=== PATIENT | female | born 1995 | race Caucasian/White ===

== ENCOUNTER 2019-09-03 15:02 | Inpatient (IN) | payer MEDICAID, SELFPAY ==
[~2019-09-03] VITALS: Ht 157.5 cm; Wt 58.5 kg
[2019-09-03 15:18] VITALS: BP 96/60
--- NOTE | 2019-09-03 15:25 | NUR ---
WAIT AT LOBBY. HANDED URINE CUP.
[2019-09-03] MEDS ORDERED: NACL 0.9% 1,000 ML IV SCH (16:16)
[2019-09-03] MEDS ORDERED: fentaNYL 0.05 MG/ML VIAL IVP ONE (16:20)
[2019-09-03] MEDS ORDERED: ONDANSETRON 4 MG/2 ML VIAL IVP ONE (16:20)
[2019-09-03 17:02] LABS: BASOPHILS % (AUTO) 0.2 % (0.0-2.0); EOSINOPHILS % (AUTO) 0.4 % (0.0-4.0); HEMATOCRIT 29.7 % (36-48); HEMOGLOBIN 9.2 g/dL (12.0-16.0); LYMPHOCYTES # (AUTO) 0.5 K/uL (2.5-16.5); LYMPHOCYTES % (AUTO) 6.9 % (20.5-51.1); MEAN CORPUSCULAR HEMOGLOBIN 23 pg (27-31); MEAN CORPUSCULAR HGB CONC 31 g/dL (33-37); MEAN CORPUSCULAR VOLUME 72.8 fL (80-94); MONOCYTES # (AUTO) 0.3 K/uL (0.8-1.0); MONOCYTES % (AUTO) 4.8 % (1.7-9.3); NEUTROPHILS % (AUTO) 87.7 % (42.2-75.2); PLATELET COUNT (AUTO) 177 K/uL (140-450); RED BLOOD CELL COUNT(AUTO) 4.08 MIL/uL (4.20-5.40); RED CELL DISTRIBUTION WIDTH 18.5 % (11.6-13.7); WHITE BLOOD COUNT (AUTO) 6.8 K/uL (4.8-10.8)
[2019-09-03 17:17] LABS: PROTHROMBIN TIME 10.3 secs (10.8-13.4)
[2019-09-03 17:19] LABS: ALBUMIN 3.8 g/dL (3.4-5.0); ANION GAP 14.8 (8-16); CARBON DIOXIDE 24.7 mmol/L (21-32); CREATININE 0.6 mg/dL (0.6-1.3); POTASSIUM 3.5 mmol/L (3.5-5.1); TOTAL BILIRUBIN 1.8 mg/dL (0.0-1.0)
[2019-09-03] MEDS ORDERED: ONDANSETRON 4 MG/2 ML VIAL ONE (17:31)
[2019-09-03] MEDS ORDERED: fentaNYL 0.05 MG/ML VIAL ONE (17:32)
--- NOTE | 2019-09-03 17:35 | NUR ---
ZOFRAN AND FENTANYL IVP ADMINISTERED
--- NOTE | 2019-09-03 17:36 | NUR ---
C/O RECURRING ANTERIOR SUPRAUMBILICAL REGION PAIN WITH SEVERE NAUSEA AND UNABLE TO TOLERATE ANY PO'S X 2-3 DAYS---PT IS AWARE SOME FOODS MAKE PAIN WORSE SEEN IN OUR ER THIS PAST SUN FOR SAME COMPLAINT----SENT HOME AFTER PAIN MEDS DENIES RECENT INJURY
--- NOTE | 2019-09-03 17:36 | NUR ---
FENTANYL 50 MCG WASTED
[2019-09-03] MEDS ORDERED: HYDROcodone/APAP 7.5/325 MG 1 TAB PO PRN (17:50)
[2019-09-03] MEDS ORDERED: ONDANSETRON 4 MG/2 ML VIAL IM/IVP PRN ×2 (17:50→22:00)
[2019-09-03] MEDS ORDERED: ACETAMINOPHEN 325 MG TAB PO PRN (17:50)
[2019-09-03] MEDS ORDERED: DOCUSATE SODIUM 100 MG GELCAP PO PRN (17:50)
[2019-09-03 18:26] LABS: CHOL/HDL RATIO 2.6 (1-4.5); FREE T4 (FREE THYROXINE) 1.2 ng/dL (0.76-1.46); MAGNESIUM 1.7 mg/dL (1.8-2.4); PHOSPHORUS 2.4 mg/dL (2.5-4.9); THYROID STIMULATING HORMONE 0.59 uIU/mL (0.34-3.74)
[2019-09-03 19:20] LABS: BILIRUBIN,URINE 2+ (NEGATIVE); BLOOD, URINE NEGATIVE (NEGATIVE); COLOR,URINE YELLOW (YELLOW); LEUKOCYTE ESTERASE ,URINE 1+ (NEGATIVE); NITRITE, URINE NEGATIVE (NEGATIVE); PH,URINE 5.5 (5.0-9.0); UGLUCOSE TRACE (NEGATIVE)
[2019-09-03] MEDS ORDERED: KETOROLAC 30 MG/ML VIAL IM PRN (19:20)
[2019-09-03 19:22] LABS: APPEARANCE,URINE CLOUDY (CLEAR)
--- NOTE | 2019-09-03 19:25 | NUR ---
RECEIVED REPORT FROM ER NURSE, PATIENT ARRIVED VIA WHEELCHAIR ON ROOM AIR. O2 SAT AT 100%. ALERT AND ORIENTED X4. DENIES ANY CURRENT PAIN. PATIENT IS AMBULATORY. ORIENTATION TO ROOM AND STAFF. IV SITE TO LEFT AC 20 GAUGE INTACT AND PATENT. WILL CONTINUE TO MONITOR PATIENT.
--- NOTE | 2019-09-03 19:29 | NUR ---
Pt transferred to Med/Surg via 125-B
[2019-09-03 19:36] LABS: BARBITURATE, URINE NEGATIVE ng/ml (NEG <=200); BENZODIAZEPINE, URINE NEGATIVE ng/mL (NEG <=200); CANNABINOID, URINE NEGATIVE ng/mL (NEG <=50); COCAINE, URINE NEGATIVE ng/mL (NEG <=300); OPIATE, URINE POSITIVE ng/mL (NEG <=2000); PHENCYCLIDINE SCREEN,URINE NEGATIVE ng/mL (NEG <=25)
[2019-09-03 19:37] LABS: CALCIUM OXALATE CRYSTALS,UR 0-10 /HPF (None Seen); RBC,URINE NONE SEEN /HPF (0-5); URINE AMORPHOUS URATE 4+ /HPF (None Seen); WBC,URINE 0-5 /HPF (0-5)
[2019-09-03] MEDS ORDERED: POTASSIUM PHOSPHATE 15 MM in NACL 0.9% 250 ML IV SCH (19:40)
[2019-09-03] MEDS ORDERED: MAG SULF 2000 MG/WATER PREMIX 50 ML IV SCH (19:40)
[2019-09-03] MEDS: DEXT 5% /NACL 0.9% 1,000 ML IV SCH (19:46)
[2019-09-03 20:00] VITALS: BP 99/55
--- NOTE | 2019-09-03 21:00 | NUR ---
PATIENT PICKED UP VIA WHEELCHAIR FOR ABDOMINAL CT SCAN.
--- NOTE | 2019-09-03 21:20 | NUR ---
PATIENT ARRIVED BACK TO UNIT FROM ABD CT SCAN. NO COMPLICATIONS NOTED. PATIENT IN BED WITH IV FLUIDS RECONNECTED, WILL CONTINUE TO MONITOR
--- NOTE | 2019-09-03 21:26 | NUR ---
RECEIVED CALL FROM [facility] REGARDING PATIENTS SCHEDULED HIDA SCAN APPOINTMENT FOR 09/04/19 AT 1200. KEEP PATIENT NPO
--- NOTE | 2019-09-03 22:39 | NUR ---
DR NYE MADE AWARE OF CT SCAN RESULTS.
--- NOTE | 2019-09-03 23:40 | NUR ---
ROUNDS MADE AND PATIENT IS SLEEPING AT THIS TIME. RESPIRATIONS EVEN AND UNLABORED. WILL CONTINUE TO MONITOR.
[2019-09-04] VITALS: BP 93/54
--- NOTE | 2019-09-04 01:55 | NUR ---
ROUNDS DONE AND PATIENT IS SLEEPING, RESP EVEN AND UNLABORED, WILL CONTINUE TO MONITOR
[2019-09-04 04:00] VITALS: BP 93/40
--- NOTE | 2019-09-04 04:00 | NUR ---
PATIENT SLEEPING, NO S/S OF DISTRESS NOTED, RESP EVEN AND UNLABORED. WILL CONTINUE TO MONITOR. BED IN LOW POSITION AND CALL LIGHT WITHIN REACH
[2019-09-04] MEDS: DEXT 5% /NACL 0.9% 1,000 ML IV SCH ×2 (04:43→14:21)
--- NOTE | 2019-09-04 06:00 | NUR ---
PATIENT AWAKE, NO CURRENT COMPLAINTS VOICED. PATIENT REMAINS NPO EXCEPT MEDS, WITH HIDASCAN SCHEDULED FOR TODAY AT 1200
[2019-09-04 06:20] LABS: BASOPHILS % (AUTO) 0.6 % (0.0-2.0); EOSINOPHILS # (AUTO) 0.1 K/uL (0-0.4); EOSINOPHILS % (AUTO) 2.3 % (0.0-4.0); HEMATOCRIT 25.8 % (36-48); HEMOGLOBIN 8.1 g/dL (12.0-16.0); LYMPHOCYTES # (AUTO) 1.4 K/uL (2.5-16.5); LYMPHOCYTES % (AUTO) 30.1 % (20.5-51.1); MEAN CORPUSCULAR HEMOGLOBIN 23 pg (27-31); MEAN CORPUSCULAR HGB CONC 31 g/dL (33-37); MONOCYTES # (AUTO) 0.3 K/uL (0.8-1.0); MONOCYTES % (AUTO) 6.8 % (1.7-9.3); NEUTROPHILS # (AUTO) 2.7 K/uL (1.8-7.7); NEUTROPHILS % (AUTO) 60.2 % (42.2-75.2); PLATELET COUNT (AUTO) 150 K/uL (140-450); RED BLOOD CELL COUNT(AUTO) 3.54 MIL/uL (4.20-5.40); WHITE BLOOD COUNT (AUTO) 4.5 K/uL (4.8-10.8)
--- NOTE | 2019-09-04 07:23 | NUR ---
REPORT GIVEN TO AM SHIFT NURSE FOR CONTINUITY OF CARE. PATIENT STABLE AT THIS TIME
[2019-09-04 07:24] LABS: ANION GAP 12.4 (8-16); CARBON DIOXIDE 23.2 mmol/L (21-32); CREATININE 0.6 mg/dL (0.6-1.3); POTASSIUM 3.6 mmol/L (3.5-5.1)
[2019-09-04 07:56] LABS: ALBUMIN 3.1 g/dL (3.4-5.0); BILIRUBIN,DIRECT 0.1 mg/dL (0.0-0.3); MAGNESIUM 2.1 mg/dL (1.8-2.4); PHOSPHORUS 2.7 mg/dL (2.5-4.9); TOTAL BILIRUBIN 0.5 mg/dL (0.0-1.0)
--- NOTE | 2019-09-04 08:00 | NUR ---
Received patient AAOX4, able to verbalize needs. No C/O pain or discomfort,Respirations nonlabored on room air. Skin is warm and dry to touch. IV access intact, no s/sx of infiltration. Bed locked in lowest position, call light in reach. Nurse will continue to observe for changes in status
--- NOTE | 2019-09-04 08:00 | NUR ---
Received patient AAOX4, able to verbalize needs. No C/O pain or discomfort,Respirations nonlabored on 2L oxygen via NC. Skin is warm and dry to touch. IV access intact, flushed with 5ml/NS. Bed locked in lowest position, call light in reach. Nurse will continue to observe for changes in status
--- NOTE | 2019-09-04 08:00 | NUR ---
Received patient AAOX4, able to verbalize needs. No C/O pain or discomfort,Respirations nonlabored on room air. Skin is warm and dry to touch. IV access intact,flushed with 5ml/NS. Bed locked in lowest position, call light in reach. Nurse will continue to observe for changes in status
--- NOTE | 2019-09-04 08:00 | NUR ---
Received patient AAOX4, able to verbalize needs. No C/O pain or discomfort, Respirations nonlabored on 2L via NC . Skin is warm and dry to touch. IV access intact, no s/sx of infiltration. Ball draing by way of gravity. Bed locked in lowest position, call light in reach. Nurse will continue to observe for changes in status
[2019-09-04 08:07] LABS: T4 (THYROXINE) 8.4 ug/dL (4.5-12.0)
--- NOTE | 2019-09-04 08:58 | NUR ---
PATIENT HAS BEEN SCREENED AND CATEGORIZED MODERATE NUTRITION RISK. PATIENT WILL BE SEEN WITHIN 3-5 DAYS OF ADMISSION. 09/06/19 09/08/[address]
--- NOTE | 2019-09-04 10:37 | NUR ---
Patient sitting up watching TV in bed resting comfortably, no c/o pain or discomfort, Respirations nonlabored, skin warm and dry, medication compliant, no adverse reactions observed or reported. Bed is locked in lowest position, call light in reach.
[2019-09-04] MEDS ORDERED: ASCORBIC ACID 500 MG TAB PO SCH (11:30)
[2019-09-04 11:34] VITALS: BP 89/45
[2019-09-04] MEDS ORDERED: FERROUS SULFATE 325 MG TABEC PO SCH (12:00)
--- NOTE | 2019-09-04 13:31 | NUR ---
DISCHARGE PLANNING: THIS IS A 24 Y/O FEMALE PATIENT FROM HOME, WHO CAME IN DUE TO ABDOMINAL AND BACK PAIN. PAST MEDICAL HISTORY INCLUDE IRREGULAR MENSTRUAL BLEEDING, ANEMIA AND GALLSTONES. INITIAL DIAGNOSIS OF ACUTE CHOLECYSTITIS. CURRENT LABS INCLUDE WBC 4.5, H/H 8.1/25.8, NA/K 143/3.6, BUN/CREA 2/0.6 AND ALB 3.1. UDS SHOWED POSITIVE FOR OPIATES. COVID TEST PENDING. URINE AND BLOOD CS PENDING. ON TORADOL AND NORCO PRN FOR PAIN. GI AND SURGICAL CONSULT IN PLACE. GALLBLADDER US SHOWED CHOLELITHIASIS. ABD/PELVIS WITHOUT CONTRAST SHOWED NON OBSTRUCTING STONE IN THE MID LEFT KIDNEY AND TINY UMBILICAL HERNIA CONTAINING FAT. CXR ON ADMISSION NEGATIVE. DC PLAN BACK TO HOME ONCE STABLE. Addendum: 09/05/19 at 1129 by Mandy Linn CM FOR [facility] UNDER DR. PLEITEZ. Addendum: 09/06/19 at 1100 by Mandy Linn CM FOR [facility] HOME TODAY, NO NEEDS.
--- NOTE | 2019-09-04 14:00 | NUR ---
PATIENT IN BED RESTING COMFORTABLY, AWAKE WATCHING TV. NO C/O PAIN OR DISCOMFORT, RESPIRATIONS NONLABORED. SKIN IS CLEAN, WARM AND DRY TO TOUCH. IV FLUIDS RUNNING ORDERED/NO S/SX OF INFILTRATION. BED LOCKED IN LOWEST POSITION, CALL LIGHT IN REACH.
[2019-09-04] MEDS ORDERED: NACL 0.9% 1,000 ML IV SCH (14:20)
--- NOTE | 2019-09-04 14:29 | NUR ---
IMPLEMENTATION ADVISOR NOTE: SW ATTEMPTED TO CONDUCT ASSESSMENT WITH PATIENT. SW CONTACTED SUNG MALONEY [phone] BUT VM WAS FULL. SW CONTACTED ALIE BURROWS [phone] AND LEFT VM. SW WILL FOLLOW UP.
[2019-09-04 17:22] VITALS: BP 96/58
[2019-09-04 18:24] VITALS: BP 96/58
--- NOTE | 2019-09-04 18:44 | NUR ---
PATIENT IS AWAKE IN BED RESTING COMFORTABLY, NO C/O PAIN OR DISCOMFORT, RESPIRATIONS NONLABORED. SKIN IS CLEAN, WARM AND DRY TO TOUCH. IV FLUIDS RUNNING ORDERED/NO S/SX OF INFILTRATION. BED LOCKED IN LOWEST POSITION, CALL LIGHT IN REACH. PATIENT NPO @ MIDNIGHT, TO BE ENDORSED TO MORTGAGE ORIGINATOR NURSE, CONSENT SIGNED AND IN CHART FOR PROCEDURE ON 09/05/19.
--- NOTE | 2019-09-04 19:05 | NUR ---
RECD. RESTING IN BE, AWAKE, A/OX4. RESPIRATION EVEN AND UNLABORED. IV OF NS INFUSING AT 40, LEFT FOREARM G20. INDEPENDENT, ABLE TO AMBULATE TO THE BR. PLAN OF CARE DISCUSSED. VERBALIZED UNDERSTANDING. DENIES PAIN 0/10.
--- NOTE | 2019-09-04 21:00 | NUR ---
JELLO AND JUICE GIVEN REQUESTED. REMINDED THAT SHE WILL BE NPO AT MIDNIGHT. VERBALIZED UNDERSTANDING.
--- NOTE | 2019-09-04 21:30 | NUR ---
DISCUSSED PLAN OF CARE, WITH YANNICK DAWSON LVN.
[2019-09-04] MEDS: SODIUM FERRIC GLUCONATE 125 MG in NACL 0.9% 100 ML IV SCH (23:05)
--- NOTE | 2019-09-04 23:05 | NUR ---
FERRLICIT IVPB INFUSED BY TAN LUGO. PATIENT IS RESTING COMFORTABLY IN BED.
[2019-09-05] VITALS: BP 107/53
--- NOTE | 2019-09-05 | NUR ---
COMFORTABLE IN BED, SLEEPING. NO COMPLAINT OF ABDOMINAL PAIN 0/10.
--- NOTE | 2019-09-05 03:00 | NUR ---
CHLORHEXIDINE WIPES GIVEN TO CLEANSED SELF PREPARATION BEFORE GOING TO OR. VERBALIZED UNDERSTANDING.
[2019-09-05 05:41] LABS: BASOPHILS % (AUTO) 0.5 % (0.0-2.0); EOSINOPHILS # (AUTO) 0.1 K/uL (0-0.4); EOSINOPHILS % (AUTO) 1.9 % (0.0-4.0); HEMATOCRIT 26.8 % (36-48); HEMOGLOBIN 8.2 g/dL (12.0-16.0); LYMPHOCYTES # (AUTO) 1.2 K/uL (2.5-16.5); LYMPHOCYTES % (AUTO) 24.7 % (20.5-51.1); MEAN CORPUSCULAR HEMOGLOBIN 23 pg (27-31); MEAN CORPUSCULAR HGB CONC 31 g/dL (33-37); MEAN CORPUSCULAR VOLUME 73.7 fL (80-94); MONOCYTES # (AUTO) 0.3 K/uL (0.8-1.0); NEUTROPHILS # (AUTO) 3.2 K/uL (1.8-7.7); NEUTROPHILS % (AUTO) 66.9 % (42.2-75.2); PLATELET COUNT (AUTO) 152 K/uL (140-450); RED BLOOD CELL COUNT(AUTO) 3.63 MIL/uL (4.20-5.40); RED CELL DISTRIBUTION WIDTH 18.2 % (11.6-13.7); WHITE BLOOD COUNT (AUTO) 4.8 K/uL (4.8-10.8)
--- NOTE | 2019-09-05 06:00 | NUR ---
SLEEPING COMFORTABLY IN BED.
[2019-09-05] MEDS ORDERED: SODIUM FERRIC GLUCONATE 125 MG in NACL 0.9% 100 ML IV ONE (06:15)
[2019-09-05 06:28] LABS: ANION GAP 14.1 (8-16); CARBON DIOXIDE 23.5 mmol/L (21-32); CREATININE 0.5 mg/dL (0.6-1.3); POTASSIUM 3.6 mmol/L (3.5-5.1)
--- NOTE | 2019-09-05 07:30 | NUR ---
RECEIVED REPORT FROM CUTTER HEAD SHARPENER NURSE. PT IN STABLE CONDITION, RESTING IN BED QUIETLY. RESPIRATIONS EVEN AND UNLABORED. NO DISTRESS NOTED. SAFETY MEASURES IN PLACE, BED IN LOWEST POSITION, CALL LIGHT WITHIN REACH. WILL CONTINUE TO MONITOR.
[2019-09-05] MEDS: DEXT 5% /NACL 0.9% 1,000 ML IV SCH ×2 (07:45→21:51)
[2019-09-05 08:00] VITALS: BP 91/53
[2019-09-05 08:07] LABS: FOLIC ACID 10.4 ng/mL (>3.0)
[2019-09-05 08:41] LABS: MAGNESIUM 1.8 mg/dL (1.8-2.4); PHOSPHORUS 3.4 mg/dL (2.5-4.9)
[2019-09-05] MEDS ORDERED: ASCORBIC ACID 500 MG TAB PO SCH (09:00)
--- NOTE | 2019-09-05 09:30 | NUR ---
SCHEDULED MEDICATIONS ADMINISTERED. PT TOLERATED WELL. PT EDUCATED ON MED SIDE EFFECTS, VERBALIZED UNDERSTANDING. WILL CONTINUE TO MONITOR.
[2019-09-05] MEDS: SODIUM FERRIC GLUCONATE 125 MG in NACL 0.9% 100 ML IV SCH ×2 (09:44→21:58)
[2019-09-05] MEDS ORDERED: BUPIVACAINE-MPF 0.25% 30 ML VIAL INJ ONE (10:34)
--- NOTE | 2019-09-05 10:38 | NUR ---
PT TAKEN TO OR FOR SURGERY. WILL AWAIT RETURN
[2019-09-05] MEDS ORDERED: ROCURONIUM 50 MG/5 ML VIAL IV ONE (11:35)
[2019-09-05] MEDS ORDERED: KETOROLAC 30 MG/ML VIAL ONE (11:35)
[2019-09-05] MEDS ORDERED: SEVOFLURANE 250 ML BTL INH ONE (11:35)
[2019-09-05] MEDS ORDERED: HYDROmorphone PFS 2 MG/ML SYR ONE (11:35)
[2019-09-05] MEDS ORDERED: ONDANSETRON 4 MG/2 ML VIAL ONE (11:35)
[2019-09-05] MEDS ORDERED: fentaNYL 0.05 MG/ML VIAL ONE (11:35)
[2019-09-05] MEDS ORDERED: PROPOFOL 200 MG/20 ML VIAL IV ONE (11:35)
[2019-09-05] MEDS ORDERED: SUCCINYLCHOLINE CHLORIDE 200 MG/10 ML VIAL IVP ONE (11:35)
[2019-09-05] MEDS ORDERED: GLYCOPYRROLATE 0.2 MG/ML VIAL ONE (11:35)
[2019-09-05] MEDS ORDERED: DEXAMETHASONE 4 MG/ML VIAL ONE (11:35)
[2019-09-05] MEDS ORDERED: NEOSTIGMINE 1:1000 10 MG/10 ML VIAL ONE (11:35)
[2019-09-05] MEDS ORDERED: ONDANSETRON 4 MG/2 ML VIAL IVP PRN (12:05)
[2019-09-05] MEDS ORDERED: HYDROmorphone 1 MG/ML AMP IVP PRN (12:05)
--- NOTE | 2019-09-05 14:17 | NUR ---
PT RETURNED FROM SURGERY IN STABLE CONDITION, TEMP 96.8, BP 106/70, HEART RATE 70, RESPIRATIONS 16, 02 98% RA. DENIES PAIN AT THIS TIME. SAFETY MEASURES IN PLACE, BED IN LOWEST POSITION, CALL LIGHT WITHIN REACH. WILL CONTINUE TO MONITOR.
[2019-09-05 16:00] VITALS: BP 118/62
--- NOTE | 2019-09-05 16:30 | NUR ---
PT ASLEEP IN BED, RISE AND FALL OF CHEST NOTED. PT IN NO APPARENT DISTRESS. VSS. WILL CONTINUE TO MONITOR.
--- NOTE | 2019-09-05 17:38 | NUR ---
PT COMPLAINED OF 6/10 PAIN AND NAUSEA. GIVEN .5MG OF DILAUDID AND ZOFRAN FOR NAUSEA. PT TOLERATED WELL. WILL CONTINUE TO MONITOR.
--- NOTE | 2019-09-05 19:30 | NUR ---
RECEIVED REPORT FORM BORA RN DAYSHIFT NURSE AT BEDSIDE FOR CONTINUITY OF CARE, PT IN STABLE CONDITION.
--- NOTE | 2019-09-05 19:30 | NUR ---
PATIENT ENDORSED TO TECH ED/[employer] TEACHER NURSE IN STABLE CONDITION FOR CONTINUITY OF CARE.
[2019-09-05 20:00] VITALS: BP 110/62
--- NOTE | 2019-09-05 20:15 | NUR ---
PT IN BED AWAKE AOX4 BILINGUAL. IV SITE LAC 20G INTACT AND RUNNING N/S AT 40MLS/. PT HAS 4 SURGICAL SCARS CLOSED WITH DERMABOND NO LEAKING , BRUISING OR BLEEDING NOTED. PT SAYS PAIN IS TOLERABLE AND DECLINES PAIN MEDICATION AT THIS TIME. V/S FOLLOWS: T 97.9 P 83 R 18 B/P 110/62 02 97% ON ROOM AIR. ALL FALLS PREVENTIONS IN PLACE AND ALL REQUESTED NEEDS ATTENDED.
--- NOTE | 2019-09-05 21:50 | NUR ---
PT IN BED C/O OF MODERATE ABDOMINAL PAIN, PT WAS GIVEN PO NORCO 7.5/325MG TABLET. WILL REEVALUATE FOR PAIN. PT FLUIDS WERE CHANGED TO D5N/S AT 80 MLS /HR AND WAS HUNG ORDERED. PT GIVEN ORDERED FERRLECIT IV FOR LOW HEMIGLOBIN AT 110 ORDERED. PT EDUCATION REGARDING MEDICATION WAS PROVIDED AT BEDSIDE INCLUDING SIDE EFFECTS, PT ACKNOWLEDGED UNDERSTANDING. ALL REQUESTS ATTENDED AND ALL UNIVERSAL PRECAUTIONS IN PLACE.
--- NOTE | 2019-09-06 | NUR ---
PT SAID SHE WAS HUNGRY AND IS REQUESTING AN INCREASE IN HER DIET.MD NYE MADE AWARE AND DIET WAS UPGRADDED TO REGULAR. PT WAS GIVEN A SANDWICH.
--- NOTE | 2019-09-06 00:30 | NUR ---
PT IN BED FINISHED SANDWICH NO C/O VOICED V/S T 98.1 P 97 R 18 B/P 122/68 02 97% ON ROOM AIR. ALL UNIVERSAL PRECAUTIONS IN PLACE.
--- NOTE | 2019-09-06 02:00 | NUR ---
PT TOLERATED SANDWICH WELL ,NO C/O VOICED, SHE IS SLEEPING ALL UNIVERSAL PRECAUTIONS IN PLACE.
--- NOTE | 2019-09-06 05:06 | NUR ---
PT IN BED, SHE TOLERATED HER SANDWICH WELL NO C/O OF VILLAREAL VOICED. SURGICAL WOUNDS REMAINED INTACT WITH DERMABOND. MEASUREMENTS FOLLOWS: LOWER ABDOMINLA BEELY BUTTON MEASURES 2CM BY .3MM , LEFT SIDE MEASURES .3MMM AND .3MM THE WOUND ON FAR RIGHT SIDE IS 1CM BY .3MM AND THE UPPER RIGHT SIDE WOUND MEASURES 1CM BY .3MM.
[2019-09-06 05:35] LABS: BASOPHILS % (AUTO) 0.3 % (0.0-2.0); EOSINOPHILS % (AUTO) 0.2 % (0.0-4.0); HEMATOCRIT 26.4 % (36-48); HEMOGLOBIN 8.4 g/dL (12.0-16.0); LYMPHOCYTES # (AUTO) 0.9 K/uL (2.5-16.5); LYMPHOCYTES % (AUTO) 10.5 % (20.5-51.1); MEAN CORPUSCULAR HEMOGLOBIN 23 pg (27-31); MEAN CORPUSCULAR HGB CONC 32 g/dL (33-37); MEAN CORPUSCULAR VOLUME 73.2 fL (80-94); MONOCYTES # (AUTO) 0.7 K/uL (0.8-1.0); MONOCYTES % (AUTO) 8.2 % (1.7-9.3); NEUTROPHILS # (AUTO) 6.6 K/uL (1.8-7.7); NEUTROPHILS % (AUTO) 80.8 % (42.2-75.2); PLATELET COUNT (AUTO) 174 K/uL (140-450); RED CELL DISTRIBUTION WIDTH 17.8 % (11.6-13.7); WHITE BLOOD COUNT (AUTO) 8.2 K/uL (4.8-10.8)
[2019-09-06 06:11] LABS: ALBUMIN 3.1 g/dL (3.4-5.0); ANION GAP 11.4 (8-16); CARBON DIOXIDE 23.5 mmol/L (21-32); CREATININE 0.5 mg/dL (0.6-1.3); MAGNESIUM 1.7 mg/dL (1.8-2.4); PHOSPHORUS 2.1 mg/dL (2.5-4.9); POTASSIUM 3.9 mmol/L (3.5-5.1); TOTAL BILIRUBIN 0.3 mg/dL (0.0-1.0)
[2019-09-06] MEDS ORDERED: SIMETHICONE 80 MG TAB.CHEW PO ONE (06:40)
[2019-09-06] MEDS ORDERED: NACL 0.9% 500 ML IV SCH (06:45)
[2019-09-06] MEDS ORDERED: FLUCONAZOLE 100 MG TAB PO ONE (06:45)
[2019-09-06] MEDS ORDERED: MAGNESIUM OXIDE 400 MG TAB PO ONE (06:45)
[2019-09-06] MEDS ORDERED: SODIUM PHOS / POTASSIUM PHOS 1 PKT PDR PO ONE (06:45)
[2019-09-06] MEDS ORDERED: CRUSHER, PILL MC ONE (07:01)
[2019-09-06] MEDS ORDERED: HYDR-5122 PO (07:04)
--- NOTE | 2019-09-06 07:16 | NUR ---
RECEIVED PATIENT FROM WAFER CUTTER NURSE FOR CONTINUITY OF CARE. AAOX4. RESPIRATIONS EVEN AND UNLABORED, ROOM AIR. MED-SURG. IV L FA GAUGE 20, RUNNING NS AT 20 ML/HR. SKIN WARM AND DRY. S/P LAP AUGUSTUS WITH 4 INCISIONS - DERMABOND, COMPUTER LAB PARA PROFESSIONAL. AMBULATORY. FULL CODE. STANDARD ISOLATION. UNIVERSAL FALL PRECAUTION. PLAN OF CARE DISCUSSED. SAFETY MEASURES IN PLACE.
[2019-09-06] MEDS ORDERED: ASCO500T45 PO (07:39)
[2019-09-06] MEDS ORDERED: DOCU-299 PO (07:39)
[2019-09-06] MEDS ORDERED: FERR325E14 PO (07:39)
[2019-09-06 08:00] VITALS: BP 107/71
[2019-09-06] MEDS: SODIUM FERRIC GLUCONATE 125 MG in NACL 0.9% 100 ML IV SCH (09:35)
--- NOTE | 2019-09-06 09:35 | NUR ---
ARIANA MARTIN. EXPLAINED MEDICATION. PATIENT VERBALIZED UNDERSTANDING. WILL CONTINUE TO MONITOR
[2019-09-06 10:32] VITALS: BP 107/71
--- NOTE | 2019-09-06 11:22 | NUR ---
GIVEN DISCHARGE INSTRUCTIONS. EXPLAINED THAT DR. BARRIOS PRESCRIBED IRON WITH VIT C, COLACE. ALL THESE ARE SENT TO [facility], SHE JUST NEEDS TO PICK THEM UP. F/U WITH DR. PLEITEZ IN 10 DAYS, PHONE AND ADDRESS GIVEN. SPLINT WHEN SHE IS TO COUGH. TAKE MEDICATIONS PRECRIBED. PATIENT VERBALIZED UNDERSTANDING. NO FURTHER QUESTIONS ASKED. PATIENT SIGNED DISCHARGE PAPERWORK
--- NOTE | 2019-09-06 11:35 | NUR ---
UP TO DATE WITH VACCINATIONS
--- NOTE | 2019-09-06 11:50 | NUR ---
DISCHARGE PATIENT VIA WHEELCHAIR. BELONGINGS ON HAND. IV SITE AND ID BAND REMOVED. PATIENT IS IN STABLE CONDITION
== END 2019-09-06 11:55 | disposition home or self-care (01) | DRG 263 ==
LOC: MED 15:02 → MMU 17:50 → EEVIPCON 17:50
PROVIDERS: ADMIT General Practice; ATTEND General Practice
PROC: BF131ZZ Fluoroscopy of Gallbladder and Bile Ducts using Low Osmolar Contrast (ICD-10-PCS; 2019-09-05)
PROC: 0FT44ZZ Resection of Gallbladder, Percutaneous Endoscopic Approach (ICD-10-PCS; principal; 2019-09-05 11:00)
DX: K80.00 Calculus of gallbladder with acute cholecystitis without obstruction (principal); K85.10 Biliary acute pancreatitis without necrosis or infection; E83.39 Other disorders of phosphorus metabolism; E44.1 Mild protein-calorie malnutrition; E83.42 Hypomagnesemia; D50.9 Iron deficiency anemia, unspecified; E80.6 Other disorders of bilirubin metabolism; N39.0 Urinary tract infection, site not specified; Z20.828 Contact with and (suspected) exposure to other viral communicable diseases; Z68.23 Body mass index [BMI] 23.0-23.9, adult
CPT/HCPCS: 36415; 71045; 74300; 76705; 80048; 80053; 80076; 80305; 81001; 82150; 82607; 82728; 82746; 83036; 83540; 83605; 83690; 83735; 83880; 84100; 84436; 84439; 84443; 84479; 84484; 85025; 85045; 85610; 85730; 86886; 86900; 86901; 87040; 87081; 87086; 88304; 93005; 96361; 96374; 96375; 99285; C1887; J0330; J0696; J1100; J1170; J1885; J2405; J2704; J2710; J2916; J3010; J3475; J3490; J7030; J7042; J7060; Q0092; U0003-CS